=== PATIENT | male | born 1965 | race Two or more races ===

== ENCOUNTER 2023-05-06 17:18 | Emergency (ER) | payer OTHER ==
[~2023-05-06] VITALS: Ht 172.7 cm; Wt 85.7 kg
[2023-05-07 00:10] LABS: HEMATOCRIT 42.2 % (39.0-48.0); HEMOGLOBIN 13.9 g/dL (13-16.00); MEAN CELL VOLUME 79.2 fL (80.0-100.00); MEAN CORPUSCULAR HEMOGLOBIN 26.1 pg (27.00-32.0); PLATELET COUNT 186 K/uL (150-450); RED BLOOD COUNT 5.33 M/uL (4.00-6.00); RED CELL DISTRIBUTION WIDTH 14.4 % (11.5-14.5)
[2023-05-07 00:19] LABS: ERYTHROCYTE SEDIMENTATION RATE 36 mm/hr
== END 2023-05-07 12:48 | disposition home or self-care (01) ==
LOC: ER 17:19
PROVIDERS: Emergency Medicine
DX: U07.1 COVID-19 (principal); I82.811 Embolism and thrombosis of superficial veins of right lower extremity; M79.606 Pain in leg, unspecified

== ENCOUNTER 2024-08-18 09:45 | Emergency (ER) | payer OTHER ==
[~2024-08-18] VITALS: Ht 172.7 cm; Wt 86.2 kg
[2024-08-18] MEDS ORDERED: KETOROLAC TROMETHAMINE 60 MG VIAL IM STA (10:18)
[2024-08-18] MEDS ORDERED: ORPHENADRINE CITRATE 30 MG/ML AMPUL IM STA (10:18)
[2024-08-18] MEDS ORDERED: KETOROLAC TROMETHAMINE 60 MG VIAL IM ONE (10:19)
[2024-08-18] MEDS ORDERED: ORPHENADRINE CITRATE 30 MG/ML AMPUL ONE (10:19)
== END 2024-08-18 12:12 | disposition home or self-care (01) ==
LOC: ER 09:45
DX: M54.50 Low back pain, unspecified (principal)